=== PATIENT | male | born 1950 | race African-American/Black ===

== ENCOUNTER 2018-12-10 08:56 | Day surgery (SDC) | payer OTHER, MEDICARE ==
[2018-12-04 11:22] VITALS: BMI 30.5
[2018-12-10 12:13] VITALS: BP 110/68; PULSE 65; TEMP 98
== END 2018-12-10 12:58 | disposition home or self-care (01) ==
LOC: FASU-ENDO 08:56
PROVIDERS: ATTEND Internal Medicine Gastroenterology
PROC: 0DJD8ZZ Inspection of Lower Intestinal Tract, Via Natural or Artificial Opening Endoscopic (ICD-10-PCS; principal; 2018-12-10 11:21)
DX: Z12.11 Encounter for screening for malignant neoplasm of colon (principal); K57.30 Diverticulosis of large intestine without perforation or abscess without bleeding

== ENCOUNTER 2021-03-14 13:18 | Emergency (ER) | payer OTHER, MEDICARE ==
[2021-03-14 13:24] VITALS: BP 120/81; PULSE 109; TEMP 97; BMI 29.1
[2021-03-14 15:22] LABS: URINE APPEARANCE CLEAR; URINE BILIRUBIN NEGATIVE (NEGATIVE); URINE COLOR YELLOW; URINE GLUCOSE (UA) NEGATIVE (NEGATIVE); URINE KETONE NEGATIVE (NEGATIVE); URINE LEUK ESTERASE NEGATIVE (NEGATIVE); URINE NITRITE NEGATIVE (NEGATIVE); URINE PROTEIN NEGATIVE (NEGATIVE); URINE UROBILINOGEN 0.2 mg/dL (0.2-1.0)
== END 2021-03-14 16:10 | disposition home or self-care (01) ==
LOC: JER 13:18
DX: N40.1 Benign prostatic hyperplasia with lower urinary tract symptoms (principal); R39.14 Feeling of incomplete bladder emptying
CPT/HCPCS: 81003; 87086; 99283-25